=== PATIENT | female | born 1945 | race African-American/Black ===

== ENCOUNTER 2016-10-16 12:41 | Inpatient (IN) | payer MEDICARE ==
[~2016-10-16] VITALS: Ht 165.1 cm; Wt 65.3 kg
[2016-10-16] MEDS: POTASSIUM CHLORIDE 10MEQ 100 ML IV SCH ×4 (00:01→20:45)
--- NOTE | 2016-10-16 13:41 | PHYS DOC ---
Adult General Chief Complaint Chief Complaint: SKIN RASH/ABSCESS HPI HPI Patient is a 71 year old female who presents with rash. She states that in July she had a brain aneurysm and needed surgery for this and now is in a rehabilitation facility and is started on many new medications. She's been on Ahlquist for 2 days but states the rash has been there for approximately week and is gotten worse. She states it itches. She denies any sore throat, fevers, shortness of breath, GI or urinary symptoms. She was started on Zyrtec today for her itching. Review of Systems Review of Systems Constitutional: Denies fever or chills [] Eyes: Denies change in visual acuity, redness, or eye pain [] HENT: Denies nasal congestion or sore throat [] Respiratory: Denies cough or shortness of breath [] Cardiovascular: No additional information not addressed in HPI [] GI: Denies abdominal pain, nausea, vomiting, bloody stools or diarrhea [] : Denies dysuria or hematuria [] Musculoskeletal: Denies back pain or joint pain [] Integument: Positive for skin rash [] Neurologic: Denies headache, focal weakness or sensory changes [] Endocrine: Denies polyuria or polydipsia [] Allergies Allergies Allergies Coded Allergies Type Severity Reaction Last Updated Verified Iodine and Iodide Containing Produc Allergy Intermediate 10/16/16 Yes codeine Allergy Intermediate 10/16/16 Yes shrimp Allergy Intermediate 10/16/16 Yes Physical Exam Physical Exam Constitutional: Well developed, well nourished, no acute distress, non-toxic appearance. [] HENT: Normocephalic, atraumatic, bilateral external ears normal, oropharynx moist, no oral exudates, nose normal. [] Eyes: PERRLA, EOMI, conjunctiva normal, no discharge. [] Neck: Normal range of motion, no tenderness, supple, no stridor. [] Cardiovascular:Heart rate regular rhythm, no murmur [] Lungs & Thorax: Bilateral breath sounds clear to auscultation [] Abdomen: Bowel sounds normal, soft, no tenderness, no masses, no pulsatile masses. [] Skin: Numerous 3-5 mm erythematous excoriated wounds on her body, one on her left elbow that is vesicular in nature. [] Back: No tenderness, no CVA tenderness. [] Extremities: No tenderness, no cyanosis, no clubbing, ROM intact, no edema. [] Neurologic: Alert and oriented X 3, normal motor function, normal sensory function, no focal deficits noted. [] Psychologic: Affect normal, judgement normal, mood normal. [] Current Patient Data Vital Signs Vital Signs Date Time Temp Pulse Resp B/P Pulse Ox O2 Delivery O2 Flow Rate FiO2 10/16/16 14:48 77 18 155/84 100 Room Air 10/16/16 13:22 97.9 97.9 Lab Values Laboratory Tests Test 10/16/16 13:55 White Blood Count 4.7x10^3/uL (4.0-11.0) Red Blood Count 3.73x10^6/uL (3.50-5.40) Hemoglobin 10.6g/dL (12.0-15.5) L Hematocrit 32.6% (36.0-47.0) L Mean Corpuscular Volume 87fL (79-100) Mean Corpuscular Hemoglobin 29pg (25-35) Mean Corpuscular Hemoglobin Concent 33g/dL (31-37) Red Cell Distribution Width 14.8% (11.5-14.5) H Platelet Count 260x10^3/uL (140-400) Neutrophils (%) (Auto) 63% (31-73) Lymphocytes (%) (Auto) 18% (24-48) L Monocytes (%) (Auto) 13% (0-9) H Eosinophils (%) (Auto) 6% (0-3) H Basophils (%) (Auto) 0% (0-3) Neutrophils # (Auto) 2.9x10^3uL (1.8-7.7) Lymphocytes # (Auto) 0.8x10^3/uL (1.0-4.8) L Monocytes # (Auto) 0.6x10^3/uL (0.0-1.1) Eosinophils # (Auto) 0.3x10^3/uL (0.0-0.7) Basophils # (Auto) 0.0x10^3/uL (0.0-0.2) Sodium Level 144mmol/L (136-145) Potassium Level 2.8mmol/L (3.5-5.1) *L Chloride Level 107mmol/L (98-107) Carbon Dioxide Level 29mmol/L (21-32) Anion Gap 8 (6-14) Blood Urea Nitrogen 7mg/dL (7-20) Creatinine 0.8mg/dL (0.6-1.0) Estimated GFR (Cockcroft-Gault) 85.8 BUN/Creatinine Ratio 9 (6-20) Glucose Level 105mg/dL (70-99) H Calcium Level 9.4mg/dL (8.5-10.1) Total Bilirubin 0.2mg/dL (0.2-1.0) Aspartate Amino Transferase (AST) 25U/L (15-37) Alanine Aminotransferase (ALT) 12U/L (14-59) L Alkaline Phosphatase 86U/L (46-116) Total Protein 7.9g/dL (6.4-8.2) Albumin 3.5g/dL (3.4-5.0) Albumin/Globulin Ratio 0.8 (1.0-1.7) L Laboratory Tests 10/16/16 13:55 Laboratory Tests 10/16/16 13:55 EKG EKG [] Radiology/Procedures Radiology/Procedures [] Impressions: Rash Hypokalemia Course & Med Decision Making Course & Med Decision Making Pertinent Labs and Imaging studies reviewed. (See chart for details) She has a rash diffusely throughout her body. She had 1 lesion that was vesicular. We did send wound and viral cultures of this. Her potassium is 2.8. Will obtain magnesium and replace her potassium. Spoke with Dr. Persaud who is agreeable to the plan and having Dr. Bianca De La Torre consult for dermatology. Patient's agreeable to being admitted and is in stable condition this time. Dragon Disclaimer Dragon Disclaimer This electronic medical record was generated, in whole or in part, using a voice recognition dictation system. Departure Departure Impression: Primary Impression: Hypokalemia Additional Impression: Rash Disposition: 09 ADMITTED INPATIENT Admitting Physician: Billy Persaud Condition: STABLE Referrals: BILLY PERSAUD MD (PCP) Problem Qualifiers KRISHNA HAYES MD Oct 16, 2016 13:41
[2016-10-16 14:27] LABS: BASO % 0 % (0-3); EOS % 6 % (0-3); HEMATOCRIT 32.6 % (36.0-47.0); HEMOGLOBIN 10.6 g/dL (12.0-15.5); LYMPH # 0.8 x10^3/uL (1.0-4.8); LYMPH % 18 % (24-48); MEAN CORPUSCULAR HEMOGLOBIN 29 pg (25-35); MEAN CORPUSCULAR HGB CONC 33 g/dL (31-37); MEAN CORPUSCULAR VOLUME 87 fL (79-100); MONO % 13 % (0-9); NEUT % 63 % (31-73); PLATELET COUNT 260 x10^3/uL (140-400); RED BLOOD COUNT 3.73 x10^6/uL (3.50-5.40); RED CELL DISTRIBUTION WIDTH 14.8 % (11.5-14.5); WHITE BLOOD COUNT 4.7 x10^3/uL (4.0-11.0)
[2016-10-16 14:38] LABS: ALBUMIN 3.5 g/dL (3.4-5.0); ALBUMIN/GLOBULIN RATIO 0.8 (1.0-1.7); CALCIUM 9.4 mg/dL (8.5-10.1); CREATININE 0.8 mg/dL (0.6-1.0); GFR 85.8; TOTAL BILIRUBIN 0.2 mg/dL (0.2-1.0); TOTAL PROTEIN 7.9 g/dL (6.4-8.2)
[2016-10-16 14:40] LABS: POTASSIUM 2.8 mmol/L (3.5-5.1)
[2016-10-16 15:12] LABS: BILIRUBIN,URINE NEGATIVE (NEG); GLUCOSE,URINE NEGATIVE (NEG); NITRITE,URINE NEGATIVE (NEG); PROTEIN,URINE NEGATIVE (NEG-TRACE); UROBILINOGEN,URINE 0.2 mg/dL (0.2 mg/dL)
[2016-10-16 15:33] LABS: BACTERIA,URINE FEW /HPF (0-FEW); RBC,URINE OCC /HPF (0-2); SQUAMOUS EPITHELIAL CELL,UR OCC /LPF; WBC,URINE OCC /HPF (0-4)
--- NOTE | 2016-10-16 17:03 | ACF ---
Admission Forms Criteria HYPONATREMIA; HYPERNATREMIA; HYPOKALEMIA; HYPERKALEMIA; HYPOCALCEMIA; HYPERCALCEMIA Clinical Indications for Inpatient Care (Place 'X' for any and all applicable criteria): Ongoing inpatient care may be indicated for ANY ONE of the following [G](1)(2)(3 )(5): [ ]I. Hyponatremia with ANY ONE of the following: [ ]a) Sodium less than 130 mEq/L (mmol/L) (new) (6)(22) [ ]b) Sodium less than 135 mEq/L (mmol/L) with ANY ONE of the following: [ ]i) Severe medical etiology requiring inpatient management (eg, heart failure, hypovolemia) [ ]ii) Altered mental status [ ]iii) Seizures [ ]II. Hypernatremia with ANY ONE of the following: [ ]a) Sodium greater than 155 mEq/L (mmol/L) [ ]b) Sodium greater than 150 mEq/L (mmol/L) with ANY ONE of the following: [ ] i) Altered mental status [ ]ii) Seizures [ ]iii) Severe medical etiology (eg, hypovolemia, diabetes insipidus) [ ]iv) Severe weakness [ ]v) Severe medical etiology (eg, hemolysis, infection, drug overdose) [X]III. Hypokalemia with ANY ONE of the following: [ ]a) Potassium less than 2.5 mEq/L (mmol/L) despite outpatient and emergency treatment [X]b) Potassium less than 3.0 mEq/L (mmol/L) with ANY ONE of the following: [ ]i) Weakness [ ]ii) Cardiac abnormality (eg, arrhythmia, conduction disturbance) [ ]iii) Cardiac ischemia [ ]iv) Ileus [ ]v) Ongoing medical cause requiring inpatient management. ( e.g., acute renal wasting, SIADH) [X]vi) Other severe symptoms [ ] IV. Hyperkalemia with ANY ONE of the following: [ ]a) Potassium greater than 6.5 mEq/L (mmol/L) [ ]b) Potassium greater than 5 mEq/L (mmol/L) with ANY ONE of the following: [ ]i) Severe ECG findings [H] [ ]ii) Acute worsening of renal failure (creatinine greater than 2.5 mg/dL (221 micromoles/L) or significant elevation for age and size) [ ] V. Hypocalcemia with ANY ONE of the following: [ ]a) Calcium less than 7 mg/dL (1.75 mmol/L) despite outpatient and emergency treatment(19) [ ]b) Calcium less than 8 mg/dL (2 mmol/L) with significant symptoms or findings; examples include: [ ]i) Cardiac abnormality (eg, arrhythmia or conduction disturbance) [ ]ii) Altered mental status [ ]iii) Seizures [ ]iv) Breathing difficulty [ ]v) Muscle spasms [ ]. Hypercalcemia with ANY ONE of the following: [ ]a) Calcium greater than 14 mg/dL (3.5 mmol/L) [ ]b) Calcium greater than 12 mg/dL (3 mmol/L) with ANY ONE of the following: [ ]i) Significant dehydration or hypovolemia as indicated by ANY ONE of the following(2): [ ]1. Clinically significant dehydration as indicated by ANY ONE of the following: [ ]A. Acute loss of weight from baseline (5% of body weight in adults, 9% in pediatric patients) [ ]B. Hemodynamic instability [ ]C. Acute renal failure [ ]D. Serum sodium greater than 150 mEq/L (mmol/L) [ ]2) Dehydration that is persistent indicated by ALL of the following: [ ]A. Oral rehydration therapy not tolerated or insufficient to adequately correct dehydration [ ]B. Appropriate intravenous treatment (eg, fluids ) does not readily correct dehydration ie, after 12 to 24 hours of treatment) [ ]ii) Significant symptoms or findings; examples include: [ ]1) Altered mental status [ ]2) Cardiac abnormality (eg, arrhythmia, conduction disturbance) [ ]3) Cardiac abnormality (eg, arrhythmia, conduction disturbance) The original [facility] content created by [employer] has been revised. The portions of the content which have been revised are identified through the use of italic text or in bold, and [facility] has neither reviewed nor approved the modified material. All other unmodified content is copyright [facility] [employer] Please see references footnoted in the original [facility] [employer] edition 2016 Admission Criteria Met?: Yes KARY DUARTE Oct 16, 2016 17:03
[2016-10-16 18:00] VITALS: BP 144/85
[2016-10-16] MEDS ORDERED: BISA10SU2 RC (19:21)
[2016-10-16] MEDS ORDERED: APIX5TAB PO (19:21)
[2016-10-16] MEDS ORDERED: LEVE100S8 PO (19:21)
[2016-10-16] MEDS ORDERED: SENN8.8S4 PO (19:21)
[2016-10-16] MEDS ORDERED: MAG360OR24 PO (19:21)
[2016-10-16] MEDS ORDERED: NA P133E2 RC (19:21)
[2016-10-16] MEDS ORDERED: MODA100T2 PO (19:21)
[2016-10-16] MEDS ORDERED: SIME80TA14 PO (19:21)
[2016-10-16] MEDS ORDERED: BISA10SU55 RC (19:21)
[2016-10-16] MEDS ORDERED: OXYC5CAP3 PO (19:21)
[2016-10-16] MEDS ORDERED: ACET160O49 PO (19:21)
[2016-10-16] MEDS ORDERED: ESCI10TA PO (19:21)
[2016-10-16] MEDS ORDERED: CLOB15CR2 TP (19:21)
[2016-10-16] MEDS ORDERED: AMLO10TA2 PO (19:21)
[2016-10-16] MEDS ORDERED: MAGN2400 PO ×2 (19:21)
[2016-10-16] MEDS ORDERED: HC/M25OI TP (19:21)
[2016-10-16] MEDS ORDERED: DOCU50LI12 PO (19:21)
[2016-10-16] MEDS ORDERED: TRAZ100T12 PO (19:21)
[2016-10-16] MEDS ORDERED: ACET160O27 PO (19:21)
[2016-10-16] MEDS ORDERED: LEVO88TA2 PO (19:21)
[2016-10-16] MEDS ORDERED: LIDO700A4 TP (19:21)
[2016-10-16] MEDS ORDERED: CETI5TAB2 PO (19:21)
[2016-10-16] MEDS ORDERED: FERR220S2 PO (19:21)
[2016-10-16] MEDS ORDERED: COLE1TAB PO (19:21)
[2016-10-16] MEDS ORDERED: ASPI81TA2 PO (19:21)
[2016-10-16] MEDS ORDERED: VALS40TA9 PO (19:21)
[2016-10-16] MEDS ORDERED: OMEP20CA9 PO (19:21)
[2016-10-16] MEDS ORDERED: HYDR25CA PO (19:21)
[2016-10-16] MEDS ORDERED: SILV400C TP (19:21)
[2016-10-16] MEDS ORDERED: ACETAMINOPHEN 325 MG TABLET. PO PRN (19:45)
[2016-10-16] MEDS: ACETAMINOPHEN 325 MG TABLET. PO PRN (20:04)
[2016-10-16 23:00] VITALS: BP 133/72
[2016-10-17 03:00] VITALS: BP 136/76
[2016-10-17 07:23] VITALS: BP 149/80
[2016-10-17 10:15] VITALS: BP 142/77
[2016-10-17] MEDS ORDERED: traZODone 100 MG TABLET. PO PRN (11:45)
[2016-10-17] MEDS ORDERED: BISACODYL 10 MG SUPP.RECT RC PRN ×2 (11:45)
[2016-10-17] MEDS ORDERED: OXYCODONE IR 5 MG TABLET. PO PRN (12:00)
[2016-10-17] MEDS ORDERED: ANTI-COAG MONITOR BY PHARMACY. MC PRN (12:00)
--- NOTE | 2016-10-17 12:11 | PDOC ---
Provider Note Provider Note [id number] JELANI MATTSON MD Oct 17, 2016 12:11
[2016-10-17] MEDS: LOSARTAN POTASSIUM 25 MG TABLET. PO SCH (12:22)
[2016-10-17] MEDS: ASPIRIN 81 MG TAB.CHEW PO SCH (12:22)
[2016-10-17] MEDS: AMLODIPINE BESYLATE 10 MG TABLET PO SCH (12:23)
[2016-10-17] MEDS: POTASSIUM CHLORIDE 10 MEQ TABLET.ER. PO SCH ×2 (12:23→18:34)
[2016-10-17] MEDS: PANTOPRAZOLE 40 MG TABLET. PO SCH (12:23)
[2016-10-17] MEDS: LEVETIRACETAM 250 MG TABLET. PO SCH ×2 (12:23→22:00)
[2016-10-17] MEDS: PREDNISONE 20 MG TABLET PO SCH (12:23)
[2016-10-17] MEDS: LEVOTHYROXINE 88 MCG TABLET PO SCH (12:24)
[2016-10-17] MEDS ORDERED: APIXABAN 5 MG TABLET. PO SCH (12:30)
[2016-10-17 15:15] VITALS: BP 136/76
--- NOTE | 2016-10-17 15:19 | HP ---
ADMIT DATE: 10/16/2016 CHIEF COMPLAINT: Itching rash. HISTORY OF PRESENT ILLNESS: A 71-year-old black female, patient of Dr. Garcia, who apparently resides at [facility]. She states that she had a stroke of perhaps hemorrhagic type several months ago and had craniotomy at "skull was placed in my stomach" for further use later. [facility] the last 2 months or so. She thinks about 2 weeks ago she was placed on Eliquis and "new blood pressure medicine" of unknown name by doctors at . About a week later, she thinks she broke out an itching, rash, which has been increasingly itching since that time. She was evaluated and admitted to the ER with hypokalemia and this itching rash, which she feels is a little better now. She is not clear why she was placed on Eliquis. At this point, she just not know her cardiovascular history very well. PAST MEDICAL HISTORY: Partially unknown. MEDICATIONS: Multiple meds were listed per the chart. The new blood pressure medicines maybe valsartan or losartan, but it is not clear from the records, which is not available at this time. ALLERGIES: LISTED TO SHRIMP, CODEINE, AND IODINE. SOCIAL HISTORY: Family in the area. She lives alone, nonsmoker, nondrinker. FAMILY HISTORY: Unremarkable. REVIEW OF SYSTEMS: No other known problems. OBJECTIVE: ENT: She has residual skull defect on the right side. Eyes, ears and pharynx normal except for moderate degree of proptosis. NECK: Revealed no carotid bruits, nodes, masses or thyroid enlargement. LUNGS: Clear, without wheezing. CARDIOVASCULAR: Regular rate with a few irregular beats. No obvious atrial fibrillation present. ABDOMEN: Soft, benign and nontender. EXTREMITIES: She has multiple marked fluid areas of hive-like rashes on the extremities, hands and even on the face and lower legs, especially several with small vesicular center to them. There is no confluence of the lesions and no specific dermatologic or geographic distribution. Mucosa appears to be spared. NEUROLOGIC: She has complete left arm weakness. The left leg is weak, but moves. She has normal speech and affect and orientation, but she is not very good with dates and recall. No tremors are noted. ASSESSMENT: 1. Hypokalemia. 2. Vesicular erythematous hive-like and vesicular rash that may be a drug eruption. New medications by history include Eliquis and an unknown blood pressure drug, which maybe valsartan or losartan. 3. History of what sounds like either hemorrhagic stroke or cerebrovascular accident from aneurysm, which has been resected. 4. Cardiovascular disease, degree unknown and need for Eliquis is not clear. She may have an episodic atrial fibrillation or perhaps cardiomyopathy, but no known deep vein thrombosis by recent history. PLAN: We will hold the Eliquis and valsartan for now. Potassium replacement orally and we will give her some prednisone as well, as I suspect this is a drug eruption. JELANI MATTSON MD DR: ALINA/nts JOB#: [id number] / [id number]
[2016-10-17 19:40] VITALS: BP 139/84
[2016-10-17] MEDS: COLESTIPOL HCL 1 GM TABLET PO SCH (22:00)
[2016-10-17] MEDS: ESCITALOPRAM 10 MG TABLET. PO SCH (22:00)
[2016-10-17] MEDS: ACETAMINOPHEN 325 MG TABLET. PO PRN (22:08)
[2016-10-17 22:46] VITALS: BP 131/75
[2016-10-18] MEDS: LEVOTHYROXINE 88 MCG TABLET PO SCH (05:28)
[2016-10-18] MEDS: ACETAMINOPHEN 325 MG TABLET. PO PRN ×2 (05:28→20:31)
[2016-10-18 07:02] VITALS: BP 118/76
[2016-10-18 07:57] LABS: CALCIUM 9.5 mg/dL (8.5-10.1); CREATININE 0.8 mg/dL (0.6-1.0); GFR 85.8
[2016-10-18] MEDS: PANTOPRAZOLE 40 MG TABLET. PO SCH (08:34)
[2016-10-18] MEDS: ASPIRIN 81 MG TAB.CHEW PO SCH (08:34)
[2016-10-18] MEDS: PREDNISONE 20 MG TABLET PO SCH (08:36)
[2016-10-18] MEDS: LOSARTAN POTASSIUM 25 MG TABLET. PO SCH (08:36)
[2016-10-18] MEDS: AMLODIPINE BESYLATE 10 MG TABLET PO SCH (08:36)
[2016-10-18] MEDS: POTASSIUM CHLORIDE 10 MEQ TABLET.ER. PO SCH ×3 (08:37→18:14)
[2016-10-18] MEDS: LEVETIRACETAM 250 MG TABLET. PO SCH ×2 (08:37→20:29)
--- NOTE | 2016-10-18 08:37 | PDOC ---
Provider Note Provider Note family reveals she recently had a dx of L arm dvt, was put on eliquis AFTER the rash developed- she states less itching since on prednisone , rash looks same, no new lesions, still centrally vesicular- no temp- K+ better 3.0- will resume eliquis for L arm dvt, heme consult for their records re same, cont pred , derm consult pending as she may need bx- ? pemphigoid, drug, doubt infection JELANI MATTSON MD Oct 18, 2016 08:37
[2016-10-18] MEDS: HYDROXYZINE PAMOATE 25 MG CAPSULE PO PRN ×2 (08:47→18:16)
[2016-10-18] MEDS: APIXABAN 5 MG TABLET. PO SCH ×2 (08:48→20:29)
[2016-10-18] MEDS: MODAFINIL PO SCH (08:49)
[2016-10-18 10:50] VITALS: BP 144/78
[2016-10-18] MEDS: COLESTIPOL HCL 1 GM TABLET PO SCH ×2 (11:34→20:29)
[2016-10-18 14:50] VITALS: BP 124/76
--- NOTE | 2016-10-18 15:17 | PDOC ---
Provider Note Provider Note Hem/Onc: Left upper extremity acute to subacute DVT of the brachial vein 09/07/16 Agree to treat with eliquis. Dr Delacruz will f/u tomorrow See dictation [id number] JEROME ROCHA MD Oct 18, 2016 15:17
[2016-10-18 19:00] VITALS: BP 142/78
[2016-10-18] MEDS: ESCITALOPRAM 10 MG TABLET. PO SCH (20:29)
[2016-10-18 23:00] VITALS: BP 119/59
[2016-10-19] MEDS: HYDROXYZINE PAMOATE 25 MG CAPSULE PO PRN ×3 (01:41→16:13)
[2016-10-19 03:00] VITALS: BP 118/68
[2016-10-19] MEDS ORDERED: HYDROCORTISONE 1% TOPICAL OINTMENT 30GM TUBE. TP PRN (03:15)
--- NOTE | 2016-10-19 06:47 | CONS ---
DATE OF CONSULTATION: 10/18/2016 REQUESTING PHYSICIAN: Dr. Jelani Early. REASON FOR CONSULTATION: DVT of the left upper extremity. HISTORY OF PRESENT ILLNESS: The patient is a 71-year-old -[place] female who was admitted to [facility] in 07/2016 with a brain aneurysm causing hematoma and herniation requiring craniectomy and bone flap placement in her abdomen. She had significant left-sided weakness since this event. She was in a rehab facility. She was noted to have chronic left upper extremity swelling and she underwent venous Doppler on 09/07/2016, which revealed acute to subacute thrombus within the mid brachial vein. 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 She was not placed on any therapeutic anticoagulation due to the intracranial bleeding. The patient was then evaluated by Dr. Dian Delacruz who discussed with neurosurgery and was clear to initiate anticoagulation and she was started on Eliquis on 10/14/2016. [facility] with complaints of a rash. She has had a rash even prior to initiating Eliquis. It is a generalized rash throughout her body. PAST MEDICAL HISTORY: Hypertension, hypothyroidism, brain aneurysm causing subdural hematoma requiring evacuation in 07/2016, stroke with left upper extremity weakness 07/2016, monoclonal gammopathy of unknown significance, diagnosed 08/2016, angioedema, thyroid surgery, intracranial aneurysm repair with evacuation of the hematoma and bone flap placement in the abdomen, PET tube placement 07/2016. She also has history of hysterectomy, colonoscopy, and tonsillectomy. FAMILY HISTORY: Negative for any primary hematologic disorders or thromboembolic events. SOCIAL HISTORY: She is a never smoker. No alcohol abuse. REVIEW OF SYSTEMS: A 12-point review of system was performed. Pertinent positives are mentioned in the history of present illness. Rest of the system review is negative. PHYSICAL EXAMINATION: GENERAL APPEARANCE: The patient is a 71-year-old -[place] female who is in no acute cardiorespiratory distress. VITAL SIGNS: Blood pressure 144/78, temperature 97.7. HEAD: Atraumatic, normocephalic. She has evidence of craniectomy that was done in 07/2016. EYES: No icterus. NECK: Supple. CHEST: Bilaterally symmetrical. No crepitations or rhonchi heard. HEART: S1, S2 normal. ABDOMEN: Soft, nontender. CENTRAL NERVOUS SYSTEM: She has left upper extremity and left lower extremity weakness. She has swelling of the left upper extremity. MUSCULOSKELETAL: No joint effusions. PSYCHOLOGIC: Mood and affect are appropriate. SKIN: There is evidence of a rash, which is generalized, maculopapular. LABORATORY DATA: WBC 4.7, hemoglobin 10.6, platelet count 260. Creatinine 0.8. Labs from 10/14/2016 revealed folic acid of 19.2. ferritin 78. Free kappa light chain 455.10, total protein of 8.2. Serum protein electrophoresis revealed M-spike. IMPRESSION AND PLAN: 1. DVT of the left upper extremity, diagnosed by a venous Doppler on 09/07/2016. She was initially not anticoagulated because of the craniectomy and aneurysm repair and hematoma. She was cleared by neurosurgery and started on Eliquis on 10/14/[address] Dian Delacruz. I would recommend to continue Eliquis and monitor for bleeding. She is tolerating it well. 2. Monoclonal gammopathy of unknown significance. Labs from 10/14/2016 reveals elevated kappa light chain of 455.1. Her total protein is mildly elevated. Serum protein electrophoresis also reveals an M-spike. Her renal function is normal with a creatinine of 0.8. This is being worked up by Dr. Dian Delacruz who will return to follow up with the patient tomorrow. 3. Rash. She has a generalized maculopapular rash throughout her body, could be a drug reaction. Continue to manage per Dr. Early. JEROME ROCHA MD DR: SRI/stephanie JOB#: [id number] / [id number] JELANI Hernandez MD [facility]
[2016-10-19 07:00] VITALS: BP 134/68
[2016-10-19] MEDS: PANTOPRAZOLE 40 MG TABLET. PO SCH (07:52)
[2016-10-19] MEDS: LEVOTHYROXINE 88 MCG TABLET PO SCH ×2 (07:52→07:58)
--- NOTE | 2016-10-19 08:02 | PDOC ---
Provider Note Provider Note itching still low, rash looks same, still centrally vesicular- tsh too low, has proptosis, will hold levo for now- dr baer to see re bx today, cont prednisone for now re ? pemphigoid vs drug rx JELANI MATTSON MD Oct 19, 2016 08:02
--- NOTE | 2016-10-19 08:45 | PDOC ---
Subjective: Subjective: Onc f/u- LUE DVT, rash, MGUS/ MM Pt s/p botox injection last week. Had very mild rash when saw me in clinic 10/14 (not pointed out to me at that time). I started her on Eliquis fro LUE DVT diagnosed in 09/15 at , not yet treated due to SDH at same time. Clarified with NS- ok to start blood thinners. Marked LUE swelling and pain have improved. Pt's rash worsened, concerned if related to Eliquis, but pt thinks due to pain meds she started before my clinic appt. Also, MGUS labs I andres that day returned concerning she could possibly have MM, needs further bmbx for eval. Skeletal survey neg. I was to seep pt Wed to discuss this. No SOB, chest pain. Movement of LUE better. Swelling greatly improved. Objective: Vital Signs: Vital Signs Date Time Temp Pulse Resp B/P Pulse Ox O2 Delivery O2 Flow Rate FiO2 10/19/16 03:00 97.9 54 18 118/68 97 Room Air 97.9 Physical Exam: Heart: Regular rate Extremities: No edema, Other (Previous 3+ LUE swelling and 1+ bialteral LE swelling now resolved) General: Alert, Oriented X3, Cooperative, No acute distress Lungs: Normal air movement Musculoskeletal: Other (greatly mobility in LUE, movement of fingers now, previous flacid) Psych/Mental Status: Mental status NL, Mood NL Labs/Imaging: CBC, BMP now stable Assessment/Plan A/P: 1. LUE DVT diagnosed Aug 2016, had not been on anticoag due to subdural hematoma s/p evacuation, Significant LUE swelling- Improved since starting Eliquis 10/15/16 2. Rash- Present before 10/15 start of Eliquis per pt and family report, unlikely to be related to this medication 3. MGUS vs Myeloma- Outpt lab eval necessitates bmbx to further eval. Skeletal survey neg. Plan: -- Please restart Eliquis after bmbx and continue on DC. -- Bmbx ordered today. Will move outpt f/u appt back 1 week to review results. D/W daughter Chula, who accompanied her to clinic as well. Thank you. MAURA KELLER DO Oct 19, 2016 08:45
[2016-10-19] MEDS: APIXABAN 5 MG TABLET. PO SCH (08:58)
[2016-10-19] MEDS: MODAFINIL PO SCH (09:00)
[2016-10-19] MEDS: PREDNISONE 20 MG TABLET PO SCH (09:18)
[2016-10-19] MEDS: ASPIRIN 81 MG TAB.CHEW PO SCH (09:18)
[2016-10-19] MEDS: AMLODIPINE BESYLATE 10 MG TABLET PO SCH (09:19)
[2016-10-19] MEDS: POTASSIUM CHLORIDE 10 MEQ TABLET.ER. PO SCH ×3 (09:19→17:40)
[2016-10-19] MEDS: LOSARTAN POTASSIUM 25 MG TABLET. PO SCH (09:20)
[2016-10-19] MEDS: LEVETIRACETAM 250 MG TABLET. PO SCH ×2 (09:20→20:46)
[2016-10-19] MEDS: COLESTIPOL HCL 1 GM TABLET PO SCH ×2 (09:20→20:46)
[2016-10-19] MEDS: ACETAMINOPHEN 325 MG TABLET. PO PRN ×2 (10:50→17:40)
[2016-10-19 11:25] VITALS: BP 111/67
[2016-10-19 15:15] VITALS: BP 119/70
--- NOTE | 2016-10-19 17:18 | PDOC ---
SUBJECTIVE Subjective abrupt onset rash, itchy. was noted to have blistering lesions in ER. patient notes began on palmar left hand (side with CVA) Interestingly, her left arm has had more rash than other sites. She has had meds changed but do not correlate with onset of rash. No reports of herpes eruption recently (mouth, buttock sores) OBJECTIVE Vital Signs Vital Signs Date Time Temp Pulse Resp B/P Pulse Ox O2 Delivery O2 Flow Rate FiO2 10/19/16 15:15 97.8 70 14 119/70 97 Room Air 97.8 10/19/16 11:25 98.6 57 18 111/67 98 Room Air 98.6 10/19/16 09:20 56 134/68 10/19/16 09:19 56 134/68 10/19/16 08:00 Room Air 10/19/16 07:00 97.7 56 16 134/68 96 Room Air 97.7 10/19/16 03:00 97.9 54 18 118/68 97 Room Air 97.9 10/18/16 23:00 98.2 49 18 119/59 98 Room Air 98.2 10/18/16 20:00 Room Air 10/18/16 19:00 98.2 63 18 142/78 97 Room Air 98.2 I & O Intake and Output 10/19/16 07:00 Intake Total 1480 ml Balance 1480 ml Intake Oral 1480 ml # Voids 5 # Bowel Movements 1 PHYSICAL EXAM Physical Exam Targetoid lesions (erythema with central blister of various size). Of interest more florid on left hand and arm (CVA side). No oral genital lesions. Various stages of development but many exhibit targetoid or bullseye appearance. ASSESSMENT/PLAN Assessment/Plan My first impression is erythema multiforme which is thought to be a kind of reaction pattern. If 50% of cases or more, the inciting cause can never be identified. In the [place], a flare of herpes simplex is a common cause and antivirals are sometimes used particularly in recurrent cases. Autoimmune bulloud disease is a possibility. Will do biopsies for both routine histology and direct immunofluorescence. The treatment is supportive (compresses, oral antihistamines for itch) The use of systemic steroids is controversial (except when thought to be secondary to drug reaction). Some literature placed on chart. Patient given some literature. I will keep her/family posted as results emerge. Problems: COMMENT Lab Laboratory Tests Test 10/19/16 04:05 Potassium Level 3.3mmol/L (3.5-5.1) ANGELA CAST MD Oct 19, 2016 17:18
[2016-10-19 19:00] VITALS: BP 124/77
[2016-10-19] MEDS: ESCITALOPRAM 10 MG TABLET. PO SCH (20:46)
--- NOTE | 2016-10-19 22:07 | OP ---
DATE OF SURGERY: PROCEDURE: Skin biopsy. DESCRIPTION OF PROCEDURE: After consent, prepped with alcohol. Local 1% lidocaine with epinephrine. Two, 3 mm punch biopsies taken from the lesion, left upper back; one for routine studies; one for direct immunofluorescence. 4-0 nylon sutures. Antibiotic ointment and Band-Aid. Orders written. ANGELA CAST MD DR: ROCAEL/nts JOB#: [id number] / [id number]
[2016-10-19 23:00] VITALS: BP 128/74
[2016-10-20] VITALS (16 sets, daily range): BP systolic 115–161; BP diastolic 63–84
[2016-10-20] MEDS: HYDROXYZINE PAMOATE 25 MG CAPSULE PO PRN ×2 (06:12→11:57)
[2016-10-20] MEDS ORDERED: LIDOCAINE 1% / SOD BICARB 8.4% 20 ML VIAL. IJ ONE ×2 (08:23→09:30)
[2016-10-20 08:54] LABS: BASO % 0 % (0-3); EOS % 2 % (0-3); HEMATOCRIT 34.5 % (36.0-47.0); HEMOGLOBIN 11.4 g/dL (12.0-15.5); LYMPH % 28 % (24-48); MEAN CORPUSCULAR HEMOGLOBIN 29 pg (25-35); MEAN CORPUSCULAR HGB CONC 33 g/dL (31-37); MEAN CORPUSCULAR VOLUME 87 fL (79-100); MONO % 19 % (0-9); NEUT % 52 % (31-73); PLATELET COUNT 268 x10^3/uL (140-400); RED BLOOD COUNT 3.95 x10^6/uL (3.50-5.40); RED CELL DISTRIBUTION WIDTH 15.2 % (11.5-14.5); WHITE BLOOD COUNT 3.6 x10^3/uL (4.0-11.0)
[2016-10-20] MEDS: APIXABAN 5 MG TABLET. PO SCH ×2 (09:00→20:36)
[2016-10-20] MEDS: MODAFINIL PO SCH (09:00)
[2016-10-20 09:01] LABS: INR 1.1 (0.8-1.1); PROTHROMBIN TIME PATIENT 13.7 SEC (11.7-14.0)
[2016-10-20] MEDS ORDERED: FENTANYL PF 250 MCG/5 ML VIAL. ONE (09:21)
[2016-10-20] MEDS ORDERED: MIDAZOLAM HCL/PF 5 MG/5 ML VIAL ONE (09:21)
[2016-10-20] MEDS ORDERED: FENTANYL PF 250 MCG/5 ML VIAL. IV ONE (09:30)
[2016-10-20] MEDS ORDERED: MIDAZOLAM HCL/PF 5 MG/5 ML VIAL IV ONE (09:30)
--- NOTE | 2016-10-20 09:40 | PDOC ---
SUBJECTIVE Subjective getting bone marrow Bx OBJECTIVE Vital Signs Vital Signs Date Time Temp Pulse Resp B/P Pulse Ox O2 Delivery O2 Flow Rate FiO2 10/20/16 09:32 71 12 100 Nasal Cannula 2.0 10/20/16 03:00 98.1 52 16 121/76 98 Room Air 98.1 10/19/16 23:00 98.5 55 16 128/74 99 Room Air 98.5 10/19/16 19:05 Room Air 10/19/16 19:00 98.7 52 18 124/77 99 Room Air 98.7 10/19/16 15:15 97.8 70 14 119/70 97 Room Air 97.8 10/19/16 11:25 98.6 57 18 111/67 98 Room Air 98.6 I & O Intake and Output 10/20/16 07:00 Intake Total 480 ml Balance 480 ml Intake Oral 480 ml # Voids 4 PHYSICAL EXAM Physical Exam VSS rash is better not as itchy , feels better ASSESSMENT/PLAN Assessment/Plan continue plan , home soon Problems: COMMENT Lab Laboratory Tests Test 10/20/16 08:30 White Blood Count 3.6x10^3/uL (4.0-11.0) Red Blood Count 3.95x10^6/uL (3.50-5.40) Hemoglobin 11.4g/dL (12.0-15.5) Hematocrit 34.5% (36.0-47.0) Mean Corpuscular Volume 87fL (79-100) Mean Corpuscular Hemoglobin 29pg (25-35) Mean Corpuscular Hemoglobin Concent 33g/dL (31-37) Red Cell Distribution Width 15.2% (11.5-14.5) Platelet Count 268x10^3/uL (140-400) Neutrophils (%) (Auto) 52% (31-73) Lymphocytes (%) (Auto) 28% (24-48) Monocytes (%) (Auto) 19% (0-9) Eosinophils (%) (Auto) 2% (0-3) Basophils (%) (Auto) 0% (0-3) Neutrophils # (Auto) 1.8x10^3uL (1.8-7.7) Lymphocytes # (Auto) 1.0x10^3/uL (1.0-4.8) Monocytes # (Auto) 0.7x10^3/uL (0.0-1.1) Eosinophils # (Auto) 0.1x10^3/uL (0.0-0.7) Basophils # (Auto) 0.0x10^3/uL (0.0-0.2) Prothrombin Time 13.7SEC (11.7-14.0) Prothromb Time International Ratio 1.1 (0.8-1.1) BILLY PERSAUD MD Oct 20, 2016 09:40
--- NOTE | 2016-10-20 09:54 | PDOC ---
MODERATE SEDATION ASSESSMENT RISKS/ALTERNATIVES Risks/Alternatives Risks and alternatives of this type of sedation and procedure discussed with: RISK/ALTERNATIVES: Patient H & P ON CHART H & P H & P on chart and reviewed for co-morbid conditions and appropriate labs. H&P ON CHART: Yes STATUS PREG STATUS ASSESSED: N/A MEDS/ALLERGIES REVIEWED Meds/Allergies Reviewed Medications and Allergies including time and route of recently administered narcotics and sedatives. MEDS/ALLERGIES REVIEWED: Yes ASA RATING ASA RATING: II AIRWAY ASSESSMENT Airway Assessment Airway patency, oral function limitations, presence of caps, crowns, dentures, partials, and ability to extend neck assessed. AIRWAY ASSESSMENT: Yes MALLAMPATI SCORE MALLAMPATI SCORE: II PRE-SEDATION ASSESSMENT PRE-SEDATION ASSESSMENT: Yes RON SUTTON MD Oct 20, 2016 09:54
--- NOTE | 2016-10-20 09:58 | PDOC ---
Exam Pipeline Engineer Pipeline Engineer Harpreet Candy Cutter Machine Candy Cutter Machine Arnoldo Helton Pre-Procedure Diagnosis Pre-Procedure Diagnosis 71 YO female with MGUS Post-Procedure Diagnosis Post-Procedure Diagnosis Same Procedure Performed Procedure Performed CT guided bone marrow asp/bx Type of Anesthesia Type of Anesthesia Local + Mod sedation Estimated Blood Loss EBL: Minimal Specimens Specimans 6 cc bone marrow aspirate + 1 11G core bx -----to heme-path Condition of Patient Condition of Patient Stable. No apparent complication. Disposition Disposition From IR/CT return to [facility]. F/u with Dr Delacruz. Full report to follow. OK to resume Eliquis this afternoon. RON SUTTON MD Oct 20, 2016 09:58
[2016-10-20] MEDS ORDERED: AMLODIPINE BESYLATE 10 MG TABLET PO SCH (10:30)
[2016-10-20] MEDS: PANTOPRAZOLE 40 MG TABLET. PO SCH (11:56)
[2016-10-20] MEDS: PREDNISONE 20 MG TABLET PO SCH (11:57)
[2016-10-20] MEDS: ASPIRIN 81 MG TAB.CHEW PO SCH (11:57)
[2016-10-20] MEDS: COLESTIPOL HCL 1 GM TABLET PO SCH ×2 (11:57→20:36)
[2016-10-20] MEDS: LEVETIRACETAM 250 MG TABLET. PO SCH ×2 (11:58→20:36)
[2016-10-20] MEDS: LOSARTAN POTASSIUM 25 MG TABLET. PO SCH (12:00)
[2016-10-20] MEDS: POTASSIUM CHLORIDE 10 MEQ TABLET.ER. PO SCH ×3 (12:01→17:26)
[2016-10-20] MEDS: BACITRACIN/POLYMYXIN B TOPICAL OINT 15GM TUBE. TP SCH (12:01)
[2016-10-20 13:06] LABS: ANISOCYTOSIS SLIGHT; OVALOCYTES FEW; PLT ESTIMATE ADEQUATE (ADEQUATE)
[2016-10-20] MEDS: ESCITALOPRAM 10 MG TABLET. PO SCH (20:36)
[2016-10-21 03:15] VITALS: BP 134/81
[2016-10-21] MEDS: HYDROXYZINE PAMOATE 25 MG CAPSULE PO PRN ×2 (05:10→12:16)
[2016-10-21] MEDS: ACETAMINOPHEN 325 MG TABLET. PO PRN ×2 (05:18→12:16)
[2016-10-21 07:00] VITALS: BP 137/80
[2016-10-21] MEDS: APIXABAN 5 MG TABLET. PO SCH (07:47)
[2016-10-21] MEDS: ASPIRIN 81 MG TAB.CHEW PO SCH (07:47)
[2016-10-21] MEDS: LOSARTAN POTASSIUM 25 MG TABLET. PO SCH (07:47)
[2016-10-21] MEDS: PANTOPRAZOLE 40 MG TABLET. PO SCH (07:48)
[2016-10-21] MEDS: POTASSIUM CHLORIDE 10 MEQ TABLET.ER. PO SCH ×2 (07:48→12:17)
[2016-10-21] MEDS: COLESTIPOL HCL 1 GM TABLET PO SCH (07:48)
[2016-10-21] MEDS: PREDNISONE 20 MG TABLET PO SCH (07:48)
[2016-10-21] MEDS: LEVETIRACETAM 250 MG TABLET. PO SCH (07:48)
[2016-10-21] MEDS: BACITRACIN/POLYMYXIN B TOPICAL OINT 15GM TUBE. TP SCH (07:49)
--- NOTE | 2016-10-21 07:51 | RAD ---
CT-guided power drill assisted bone marrow aspiration and biopsy Indication: 71-year-old female with MGUS. CT-guided bone marrow aspirate/biopsy has been requested by hematology-oncology. Anesthesia: 16 minutes moderate sedation was provided utilizing a total of 2 mg Versed and 100 mcg fentanyl, IV. The patient was appropriately monitored by a qualified independent observer throughout the time of moderate sedation. Procedure: Informed consent was obtained from the patient. She was placed prone on the CT scanner. Preliminary noncontrast CT images were obtained through pelvis. A left posterior skin site suitable for CT-guided bone marrow aspirate/biopsy from posterior left iliac bone was selected and marked. That area was prepped and draped in the usual sterile fashion, with chlorhexidine. Conscious sedation was provided with IV Versed and fentanyl. Using aseptic technique, local anesthesia, and CT guidance, and the CAD Best power tractor trailer driver, successful percutaneous entry was achieved through posterior cortex of left iliac bone. Approximately 6 cc of bone marrow was promptly aspirated, and was submitted to hematology personnel in the CT suite. Using CT guidance, the On[employer] power tractor trailer driver was then utilized to obtain a single, 11-gauge core biopsy sample from marrow cavity of left iliac bone. The biopsy sample was submitted to pathology in formalin. A sterile dressing was applied over the biopsy skin puncture site. Patient tolerated the procedure well without apparent complication. Impression: Successful, uneventful CT-guided bone marrow aspirate and biopsy, utilizing the CAD Best power tractor trailer driver biopsy system, as described. PQRS compliance statement: One or more of the following individualized dose reduction techniques were utilized for this CT procedure: 1. Automated exposure control. 2. Adjustment of MA and/or KV according to patient size. 3. Iterative reconstruction technique.
[2016-10-21] MEDS ORDERED: DIPHENHYDRAMINE HCL 25 MG CAPSULE PO PRN (09:00)
[2016-10-21] MEDS ORDERED: CETIRIZINE HCL 10 MG TABLET PO PRN (09:00)
[2016-10-21] MEDS ORDERED: AMLODIPINE BESYLATE 5 MG TABLET PO SCH (09:00)
[2016-10-21] MEDS: MODAFINIL PO SCH (09:00)
[2016-10-21] MEDS ORDERED: CETI5TAB2 PO (09:16)
[2016-10-21] MEDS ORDERED: PRED-220 PO (09:16)
[2016-10-21] MEDS ORDERED: BACI28.32 TP (09:16)
[2016-10-21] MEDS ORDERED: ACET325T16 PO (09:16)
[2016-10-21] MEDS ORDERED: HYDR28OI6 TP (09:16)
[2016-10-21] MEDS ORDERED: AMLO10TA2 PO (09:16)
[2016-10-21] MEDS ORDERED: RANI150T6 PO (09:16)
--- NOTE | 2016-10-21 09:18 | PDOC3 ---
Discharge Summary* Date of Admission: Oct 16, 2016 Date of Discharge: Oct 21, 2016 Admitting Diagnosis Problems Medical Problems: (1) DVT (deep venous thrombosis) Status: Acute (2) Hypokalemia Status: Acute (3) Rash Status: Acute Final Diagnosis 1. Hypokalemia 2. Rash. 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 DVT of the left upper extremity, diagnosed by a venous Doppler on 09/07/2016. She was initially not anticoagulated because of the craniectomy and aneurysm repair and hematoma. She was cleared by neurosurgery and started on Eliquis on 10/14/[address] Dian Delacruz. I would recommend to continue Eliquis and monitor for bleeding. She is tolerating it well. 4. Monoclonal gammopathy of unknown significance. Labs from 10/14/2016 reveals elevated kappa light chain of 455.1. Her total protein is mildly elevated. Serum protein electrophoresis also reveals an M-spike. Her renal function is normal with a creatinine of 0.8. This is being worked up by Dr. Dian Delacruz who will return to follow up with the patient tomorrow. Problems Medical Problems: (1) DVT (deep venous thrombosis) Status: Acute (2) Hypokalemia Status: Acute (3) Rash Status: Acute CONSULTS hem/onc Dr. King Dermatology Dr. De La Torre Procedures skin Bx Bone marrow Bx Brief Hospital Course Ms. Simeon is a 71 old [sex] who presented with [ ] Disposition/Orders: D/C to Another Facility CONDITION AT DISCHARGE: Improved Diet: Regular Scheduled Acetaminophen (Acetaminophen) 20 ML PO TID (Reported) Acetaminophen (Children's Tylenol) 20 ML PO QIDPRN (Reported) Amlodipine Besylate (Amlodipine Besylate) 5 MG PO DAILY Apixaban (Eliquis) 5 MG PO BID (Reported) Apixaban (Eliquis) 10 MG PO BID (Reported) Aspirin (Aspirin) 1 TAB PO DAILY (Reported) Bacitracin/Polymyxin B Sulfate (Bacitracin-Polymyxin Ointment) 1 NICK TP DAILY Cetirizine Hcl (Cetirizine Hcl) 10 MG PO DAILY Clobetasol Propionate/Emoll (Clobetasol Emollient 0.05% Crm) 15 GM TP BID ( Reported) Colestipol Hcl (Colestid) 1 GM PO BID (Reported) Docusate Sodium (Docu Liquid) 10 ML PO BID (Reported) Escitalopram Oxalate (Escitalopram Oxalate) 1 TAB PO HS (Reported) Ferrous Sulfate (Ferrous Sulfate) 20 ML PO DAILY (Reported) Hc/Mineral Oil/Petrolat,Wht (Hydrocortisone 1% Absorbase) 25 GM TP TID (Reported ) Levetiracetam (Keppra) 7.5 ML PO BID (Reported) Levothyroxine Sodium (Synthroid) 1 TAB PO DAILY06 (Reported) Lidocaine (Lidoderm) 1 PATCH TP DAILY (Reported) Magnesium Hydroxide (Milk Of Magnesia) 10 ML PO HS (Reported) Modafinil (Modafinil) 0.5 TAB PO DAILY (Reported) Omeprazole (Omeprazole) 1 CAP PO DAILY (Reported) Prednisone (Prednisone) 10 MG PO UD Ranitidine Hcl (Zantac) 1 TAB PO BID Sennosides (Senna) 10 ML PO BID (Reported) Silver Sulfadiazine (Silver Sulfadiazine) 400 GM TP QID (Reported) Simethicone (Simethicone) 80 MG PO BID (Reported) Valsartan (Valsartan) 40 MG PO DAILY (Reported) Scheduled PRN Acetaminophen (Mapap) 325 MG PO PRN Q4HRS PRN PRN MILD PAIN / TEMP Bisacodyl (Dulcolax) 10 MG RC PRN DAILY PRN PRN CONSTIPATION (Reported) Bisacodyl (Bisacodyl) 10 MG RC PRN DAILY PRN PRN CONSTIPATION (Reported) Hydrocortisone Acetate (Anti-Itch) 1 NICK TP PRN Q2HRS PRN PRN ITCHING Hydroxyzine Pamoate (Vistaril) 1 CAP PO PRN Q6HRS PRN PRN ITCHING (Reported) Mag Hydrox/Al Hydrox/Simeth (Alum-Mag Hydroxide-Simeth Liq) 30 ML PO PRN Q4HRS PRN PRN INDIGESTION (Reported) Magnesium Hydroxide (Milk Of Magnesia) 30 ML PO PRN DAILY PRN PRN CONSTIPATION ( Reported) Na Phos,M-B/Na Phos,Di-Ba (Fleet Enema) 1 EACH RC PRN Q24HRS PRN PRN CONSTIPATION (Reported) Oxycodone Hcl (Oxycodone Hcl) 1 CAP PO PRN Q4HRS PRN PRN PAIN (Reported) Trazodone Hcl (Trazodone Hcl) 1 TAB PO PRN QHS PRN PRN INSOMNIA (Reported) FOLLOW UP APPOINTMENT: Dr. De La Torre next week Dr Persaud next week Time Spent Total time spent with patient [] minutes for coordination of care, counseling, and education. BILLY PERSAUD MD Oct 21, 2016 09:18
--- NOTE | 2016-10-21 09:18 | PDOC ---
Subjective: Subjective: Onc f/u- Possible MM, LUE DVT Pt with no swelling in extremities now. Increased mobility of LUE. Rash improving, remains very itchy. Bmbx yesterday. Eager to DC. Objective: Vital Signs: Vital Signs Date Time Temp Pulse Resp B/P Pulse Ox O2 Delivery O2 Flow Rate FiO2 10/21/16 08:57 51 137/80 10/21/16 08:00 Room Air 2.0 10/21/16 07:00 97.7 18 98 97.7 Physical Exam: Heart: Regular rate Extremities: No clubbing, No edema General: Alert, Oriented X3, Cooperative, No acute distress Lungs: Normal air movement Psych/Mental Status: Mental status NL, Mood NL Skin: Other (Diffuse rash improving, no new lesions) Labs/Imaging: Bmbx yesterday, path pending Assessment/Plan A/P: 1. LUE DVT diagnosed Aug 2016, had not been on anticoag due to subdural hematoma s/p evacuation- Started Eliquis 10/15/16; continue until upcoming skull reimplantation in October, then will resume again when safe with neurosurg. 2. Rash- Present before 10/15 start of Eliquis per pt and family report, unlikely to be related to this medication. Improving. Claritin and bendryl prn added for severe itching. 3. MGUS vs Myeloma- Skeletal survey neg. Bmbx done 10/20, will f/u path next week as outpt. Plan: -- DC on Eliquix -- F/u with me as planned in clinic. -- Ok to DC from onc standpoint. D/W daughter [place]. MAURA KELLER DO Oct 21, 2016 09:18
--- NOTE | 2016-10-21 09:18 | PDOC ---
SUBJECTIVE Subjective feels better , OBJECTIVE Objective lashawn but not symptomatic Vital Signs Vital Signs Date Time Temp Pulse Resp B/P Pulse Ox O2 Delivery O2 Flow Rate FiO2 10/21/16 08:57 51 137/80 10/21/16 08:00 Room Air 2.0 10/21/16 07:47 51 137/80 10/21/16 07:00 97.7 51 18 137/80 98 Room Air 97.7 10/21/16 03:15 98.2 56 20 134/81 99 Room Air 98.2 10/20/16 23:00 97.7 52 20 124/63 99 Room Air 97.7 10/20/16 20:00 Room Air 2.0 10/20/16 19:00 97.9 60 18 128/77 97 Room Air 97.9 10/20/16 15:00 97.9 60 18 132/80 97 Room Air 97.9 10/20/16 13:00 53 148/67 10/20/16 12:00 55 141/75 10/20/16 12:00 55 141/75 10/20/16 11:30 51 151/77 10/20/16 11:00 50 149/78 10/20/16 10:45 49 161/77 10/20/16 10:30 53 156/75 10/20/16 10:15 52 155/78 10/20/16 09:48 60 12 100 Nasal Cannula 10/20/16 09:42 67 15 100 Nasal Cannula 2.0 10/20/16 09:37 59 15 100 Nasal Cannula 2.0 10/20/16 09:32 71 12 100 Nasal Cannula 2.0 10/20/16 09:32 15 100 Nasal Cannula 2.0 I & O Intake and Output 10/21/16 07:00 Intake Total 360 ml Balance 360 ml Intake Oral 360 ml # Voids 2 PHYSICAL EXAM Physical Exam rash slightly better lungs clear Heart Bradycardia ASSESSMENT/PLAN Assessment/Plan to SNU today Problems: BILLY PERSAUD MD Oct 21, 2016 09:18
[2016-10-21 11:00] VITALS: BP 147/81
--- NOTE | 2016-10-22 17:06 | PATHOLOGY ---
PATHOLOGY REPORT * * * * * * * * FINAL DIAGNOSIS: A. Skin, left back, H and E: - Intraepidermal vesicular dermatitis, lymphocytes predominate. (see comment) B. Skin, left back, direct immunofluorescence: - Nonspecific findings. COMMENT: Based on the histologic pattern of inflammation seen in specimen A, the findings are consistent with the clinical impression of erythema multiforme. (SAS:mgr:csd; d/t: 10/21/16) Special Stains: IgG, IgA, IgM, C3, fibrinogen (B) REPORT ELECTRONICALLY SIGNED BY: Jaida Caro M.D., Dermatopathologist DATE/TIME: 10/22/2016 17:05 * * * * * * * * MICROSCOPIC DESCRIPTION: A. Multiple levels of a punch biopsy of skin shows a basketweave stratum corneum. The epidermis shows extensive vacuolar change and numerous necrotic keratinocytes. Suprabasilar keratinocytes display ballooning and necrosis as well. The underlying dermis displays a superficial perivascular lymphohistiocytic inflammatory infiltrate with scattered pigment containing dermal macrophages. B. Direct immunofluorescence: IgG: negative; IgA: occasional 2+ cytoid bodies; IgM: occasional 2+ cytoid bodies; C3: negative; Fibrinogen: negative. GROSS PATHOLOGY: A. Received in formalin labeled "Simeon, Abercrombie and left back," is a punch biopsy measuring 0.3 x 0.3 x 0.5 cm in maximum dimensions. The epidermal surface is starr, wrinkled, and grossly unremarkable. The margin is inked, and the specimen is entirely submitted in cassette A1. B. Received in James's solution labeled "Simeon, Abercrombie and left back," is a punch biopsy measuring 0.3 x 0.3 x 0.4 cm in maximum dimensions. The epidermal surface is starr, wrinkled, and grossly unremarkable. The specimen is entirely submitted in cassette B0, for direct immunofluorescence studies. (TTL; 10/20/2016) INITIAL CPT CODE(S): A; 99029 B; 78028, 27226, 22121, 56214, 37170 Professional services performed by [facility], [address] [place] [id number]. Technical services performed by [facility] at [address] [place] [id number]. SPECIMEN(S) RECEIVED: A.Left back B.Left back CLINICAL HISTORY: Skin biopsy left back, 3mm punch, blistering rash, targeted, clinically erythema multiforme PATIENT: BONILLA SIMEON /AGE: 109/07/1945 (Age: 71) PATIENT #: [id number] ALT CASE #: SPECIMEN COLLECTION DATE: 10/19/2016 SPECIMEN RECEIVED DATE: 10/20/2016 [facility] - [id number] [place] [address] - PHONE: [phone] * * * END OF REPORT * * *
== END 2016-10-21 16:15 | DRG 596 ==
LOC: ER 12:41 → 5 NORTH 15:20 → OBSVTOIN 15:20
PROVIDERS: ADMIT Internal Medicine; ATTEND Internal Medicine
PROC: 0HB6XZX Excision of Back Skin, External Approach, Diagnostic (ICD-10-PCS; principal; 2016-10-19)
DX: L51.1 Stevens-Johnson syndrome (principal); E87.6 Hypokalemia; R21 Rash and other nonspecific skin eruption; D47.2 Monoclonal gammopathy; E03.9 Hypothyroidism, unspecified; G83.24 Monoplegia of upper limb affecting left nondominant side; I10 Essential (primary) hypertension; I25.10 Atherosclerotic heart disease of native coronary artery without angina pectoris; Z86.718 Personal history of other venous thrombosis and embolism; Z90.710 Acquired absence of both cervix and uterus; Z91.041 Radiographic dye allergy status; Z79.899 Other long term (current) drug therapy; Z88.6 Allergy status to analgesic agent
CPT/HCPCS: 36415; 38221; 77012; 80048; 80053; 81001; 82947; 83735; 84132; 84443; 85007; 85027; 85610; 87070; 87205; 87252; 87641; 88184; 88185; 88237; 88305; 88346; G0364; J2250; J3010; J3480; J7512; Q0177